=== PATIENT | female | born 1990 | race Caucasian/White ===

== ENCOUNTER → 2023-05-19 11:05 | Outpatient (REF) | payer BC, SELFPAY | LOC: RAD 11:05 | PROVIDERS: ATTENDING PHYSICIAN Obstetrics & Gynecology; FAMILY PHYSICIAN Internal Medicine | DX: O26.851 Spotting complicating pregnancy, first trimester (principal) | CPT/HCPCS: 76801; 76817 ==

== ENCOUNTER 2023-05-20 06:26 | Day surgery (SDC) | payer BC, SELFPAY ==
[2023-05-20] VITALS (7 sets, daily range): BP systolic 104–128; BP diastolic 65–91; BMI 21.2
[2023-05-20 08:25] LABS: Hematocrit 34.9 % (37.0-47.0); Hemoglobin 12.4 g/dL (12.0-16.0)
[2023-05-20] MEDS: VIBRAMYCIN 260 MG IV (09:47)
== END 2023-05-20 11:10 | disposition home or self-care (01) ==
LOC: SDS 06:26
PROVIDERS: ATTENDING PHYSICIAN Obstetrics & Gynecology
DX: O03.4 Incomplete spontaneous abortion without complication (principal)
CPT/HCPCS: 59812; 88305; 85014; 85018; 86850; 86900; 86901

== ENCOUNTER → 2023-10-11 15:11 | Outpatient (REF) | payer BC, SELFPAY | LOC: PNTC 15:11 | PROVIDERS: ATTENDING PHYSICIAN Obstetrics & Gynecology | DX: Z36.0 Encounter for antenatal screening for chromosomal anomalies (principal); Z36.82 Encounter for antenatal screening for nuchal translucency | CPT/HCPCS: 76801; 76813 ==

== ENCOUNTER 2024-04-16 08:23 | Inpatient (IN) | payer BC, SELFPAY ==
[2024-04-15 18:00] VITALS: BP 127/86; BMI 28.3
[2024-04-15] MEDS: MAALOX 30 ML PO (19:44)
[2024-04-15] MEDS: LR 1000 IV ×2 (21:15→23:04)
[2024-04-15 21:34] LABS: % Basophils 0.3 % (0-2); % Immature Granulocytes 0.6 % (0-0.5); % Lymphocytes 6.9 % (20.5-51.1); % Monocytes 4.4 % (1.7-9.3); % Neutrophils 87.8 % (42.2-75.2); Absolute Basophils 0.1 10^3/uL (0-0.2); Absolute Immature Granulocytes 0.1 10^3/uL (0-0.05); Absolute Lymphocytes 1.1 10^3/uL (1.2-3.4); Absolute Monocytes 0.7 10^3/uL (0.1-0.6); Absolute Neutrophils 14.2 10^3/uL (1.4-6.5); Hematocrit 37.2 % (37.0-47.0); Hemoglobin 13.1 g/dL (12.0-16.0); Mean Corp Hgb Conc. 35.2 g/dL (33.0-37.0); Mean Corpuscular Hgb 29.9 pg (27.0-31.0); Mean Corpuscular Volume 84.9 fL (81.0-99.0); Mean Platelet Volume 10.2 fL (7.4-10.4); Nucleated Red Blood Cells % 0 %; Platelet Count 286 10^3/uL (130-400); Red Blood Cell Count 4.38 10^6/uL (4.20-5.40); Red Cell Dist. Width 12.6 % (11.5-14.5); White Blood Cell Count 16.2 10^3/uL (4.8-10.8)
[2024-04-15] MEDS: FENTANYL/BUPIVACAINE 100 EPIDURAL (22:09)
[2024-04-15] MEDS: SUBLIMAZE 100 MCG EPIDURAL (22:09)
[2024-04-15] MEDS: PITOCIN 30 UNITS/NSS 500 ML IV (23:04)
[2024-04-16 05:47] LABS: Hematocrit 32.9 % (37.0-47.0); Hemoglobin 11.5 g/dL (12.0-16.0)
[2024-04-16] MEDS: PRENATAL PLUS 1 TABLET PO (07:43)
[2024-04-17] MEDS: MOTRIN 600 MG PO (05:05)
[2024-04-17] MEDS: PRENATAL PLUS 1 TABLET PO (08:17)
[2024-04-17 13:20] LABS: Syphilis/T. pallidum Ab Reflex Negative (Negative)
== END 2024-04-17 12:15 | disposition home or self-care (01) | DRG 807 ==
LOC: LDRP 08:23
PROVIDERS: ADMITTING PHYSICIAN Obstetrics & Gynecology; FAMILY PHYSICIAN Internal Medicine
PROC: 10E0XZZ Delivery of Products of Conception, External Approach (ICD-10-PCS; 2024-04-15)
PROC: 0HQ9XZZ Repair Perineum Skin, External Approach (ICD-10-PCS; 2024-04-15)
DX: O70.0 First degree perineal laceration during delivery (principal); Z37.0 Single live birth; Z3A.39 39 weeks gestation of pregnancy
CPT/HCPCS: 36415; 85014; 85018; 85025; 86780; 86850; 86900; 86901

== ENCOUNTER 2024-09-21 11:15 | Emergency (ER) | payer SELFPAY ==
[2024-09-21 11:20] VITALS: BP 130/91
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
== END 2024-09-21 13:02 | disposition home or self-care (01) ==
LOC: EMR 11:15
PROVIDERS: EMERGENCY PHYSICIAN Emergency Medicine; FAMILY PHYSICIAN Internal Medicine
DX: R51.9 Headache, unspecified (principal); V47.5XXA Car driver injured in collision with fixed or stationary object in traffic accident, initial encounter
CPT/HCPCS: 99283

== ENCOUNTER 2024-11-06 18:09 | Emergency (ER) | payer OTHER, BC, SELFPAY ==
[2024-11-06 18:14] VITALS: BP 110/82
[2024-11-06 18:40] LABS: Hematocrit 36.5 % (37.0-47.0); Hemoglobin 12.5 g/dL (12.0-16.0); Mean Corp Hgb Conc. 34.2 g/dL (33.0-37.0); Mean Corpuscular Volume 83.1 fL (81.0-99.0); Nucleated Red Blood Cells % 0 %; Platelet Count 237 10^3/uL (130-400); Red Cell Dist. Width 13.0 % (11.5-14.5)
[2024-11-06 18:50] LABS: HCG, Serum Qualitative Screen Negative
[2024-11-06 18:59] LABS: ALT (SGPT) 26 U/L (0-35); AST (SGOT) 22 U/L (14-36); Albumin 4.8 g/dl (3.5-5.0); Alkaline Phosphatase 65 U/L (38-126); Blood Urea Nitrogen 10 mg/dl (7-17); Calcium 9.3 mg/dl (8.4-10.2); Carbon Dioxide 23 mmol/L (22-30); Chloride 100 mmol/L (98-107); Glucose 108 mg/dl (70-99); Potassium 4.0 mmol/L (3.5-5.1); Sodium 132 mmol/L (135-145); Total Protein 7.9 g/dl (6.3-8.2); eGFR > 60.00
[2024-11-06 21:26] VITALS: BP 98/66
[2024-11-06 21:41] VITALS: BMI 21.5
[2024-11-06 22:00] VITALS: BP 98/74
--- NOTE | 2024-11-06 22:15 | ED.GENMED ---
History of Present Illness
General
Chief Complaint: Cardiac Symptoms
Source: patient
Exam Limitations: none
Time Seen by Provider: 11/06/24 21:10
History of Present Illness
History of Present Illness:
33-year-old female scratchy throat low-grade fever the last few days. Patient's children are ill. When she got to urgent care her heart was pounding and racing some. They did an EKG with T wave inversions and sent her to the hospital. Currently
she feels well and is in no distress. She denies chest pain shortness of breath abdominal pain pleuritic pain. Sore throat is minimal at this time.
Past History
Past History
ED Past Medical History: None
ED Past Surgical History: Orthopedic and Other ([place] teeth. Sinus surgery)
Social History
Tobacco: Non-smoker
Personal: Single
Living: with family
Employment: Employed
Review of Systems
Review of Systems
All Other Systems: Not applicable
Constitutional: Reports fever
Respiratory: Reports no symptoms
Cardiac: Reports no symptoms
ABD/GI: Reports no symptoms
Phy Exam
Physical Exam
Physical Exam:
GENERAL: Alert and oriented in no apparent distress
EYE: Orbits normal.
NECK: Supple, minimal bilateral submandibular adenopathy
ENT: Pharynx with mild diffuse erythema. No exudate. No abscess. No drooling or stridor
CARDIAC: Borderline tachycardic. Regular. No murmur
LUNGS: Clear breath sounds,normal
ABDOMEN: Soft, without focal tenderness or distention
NEUROLOGICAL: Alert and oriented , grossly non-focal
SKIN: Warm and dry, no rash or lesion, no discoloration, skin intact.
MUSCULOSKELETAL: No edema,no deformity.Good color
PSYCH: Normal and appropriate interaction.
Course
Orders/Labs/Results
Orders:
Orders
11/06/24 18:09
Electrocardiogram (*1) Urgent
Reason for Study: Abnormal EKG
EKG- Treatment ONCE
11/06/24 18:20
Test Result ONCE
11/06/24 18:29
Complete Blood Count/With Diff Urgent
Comprehensive Metabolic Panel Urgent
HCG, Serum Qualitative Screen Urgent
11/06/24 22:27
0.9% Sodium Chloride 1000 ml [Nss] 1,000 ml IV BOLUS
11/06/24 22:39
D-Dimer Urgent
Troponin I Urgent
11/06/24 23:16
Rapid Strep Group A Urgent
CHAD Source: Throat/Pharynx
Specimen Description:
Date Specimen was Collected: 11/06/24
Time Specimen was Collected: 22:47
Throat Culture [Throat Culture, Comprehensive] Urgent
CHAD Source: Throat/Pharynx
Specimen Description:
Date Specimen was Collected: 11/06/24
Time Specimen was Collected: 22:47
11/07/24 00:55
Electrocardiogram (*1) Stat
Reason for Study: Other
Other Reason for Exam: chest pain
EKG- Treatment ONCE
11/07/24 01:04
Troponin I Urgent
11/07/24 02:19
0.9% Sodium Chloride 1000 ml [Nss] 1,000 ml IV BOLUS
Abnormal Lab Results
11/06/24
18:29
Hct 36.5 L %
(37.0-47.0)
Absolute Monos (auto) 0.7 H 10^3/uL
(0.1-0.6)
Sodium 132 L mmol/L
(135-145)
Glucose 108 H mg/dl
(70-99)
11/06/24 18:29
11/06/24 18:29
Vital Signs
Initial and Last Documented VS:
Initial Vital Signs
Temp Pulse Resp BP Pulse Ox
99.5 F 118 16 110/82 96
11/06/24 18:14 11/06/24 18:14 11/06/24 18:14 11/06/24 18:14 11/06/24 18:14
Last Documented Vital Signs
Temp Pulse Resp BP Pulse Ox
99.7 F 102 15 98/74 96
11/07/24 02:26 11/06/24 23:35 11/06/24 23:35 11/06/24 23:00 11/06/24 22:16
MDM/Problems Addressed
Differential Diagnosis Includes:
EKG has nonspecific changes. However very low suspicion for any acute cardiac issue/myocarditis/pericarditis. She has no symptoms. She has no chest pain no shortness of breath. She has no murmur. She has no skin findings. Will check troponin
and D-dimer for completeness.
*Pulse Oximetry
SaO2: 96
Oxygen Mode of Delivery: Room air
Patient hypoxic: no
*EKG
Interpreted by ED Provider?: Yes
Interpretation: abnormal
Comparison EKG: no comparison EKG present
Heart Rate: 116
Rate: tachycardiac
Rhythm: sinus
Weidman: normal axis
Interval: normal interval
QRS Pattern: normal QRS
Ischemia: non-specific ST changes
Update Note
Update Note:
Repeat troponin is normal. Repeat EKG sinus tachycardia with nonspecific changes. Patient has no chest pain no shortness of breath is very nontoxic only complaining of a mild sore throat. She is mildly hypotensive although she is thin and petite.
We will give her a second liter of fluids. Nothing to support a bacterial infection at this time although she has a history of sinus issues.
ED Attending Note
-
Portions of this chart may have been created with voice recognition software.� Occasional wrong word or��sound alike� substitutions may have occurred due to the inherent limitations of voice recognition software.
Discharge Plan
Departure
Patient Disposition: Home (Routine Discharge)
Date of Disposition: 11/07/24
Time of Disposition: 02:53
Patient with high blood pressure during this ER visit?: No
Discharge Problem:
Pharyngitis/fever, Abnormal EKG
Instructions: Fever in adults - ED discharge instructions, Sore Throat - Adult
Prescriptions:
New
amoxicillin 500 mg capsule
500 mg PO TID 10 Days Qty: 30 0RF
No Action
1 tab PO DAILY
acetaminophen 325 mg Tablet
650 mg PO Q4HPRN PRN (Reason: mild pain) Qty: 7 0RF
sennosides-docusate sodium 8.6-50 mg Tablet
1 tab PO DAILYPRN PRN (Reason: constipation) Qty: 7 0RF
ibuprofen 600 mg Tablet
600 mg PO Q6HPRN PRN (Reason: moderate pain/cramps) Qty: 7 0RF
Referrals:
Grant Donovan MD [Family Provider, Internal Medicine] - Follow up in 2-3 days
Activity Restrictions/Additional Instructions:
Only start the antibiotics if you are not improving in 24 hours
Stay well-hydrated.
Follow-up closely with your physician
Return immediately with any chest pain shortness of breath worsening fever vomiting or if symptoms have not improved in a few days
Interventions
Interventions:
*Risk Screen - Suicide Last Done: 11/06/24 23:38
*General Assessment Last Done: 11/06/24 23:38
*Neglect/Abuse Screening Last Done: 11/06/24 23:38
*ED- Fall Risk Assessment Last Done: 11/06/24 23:22
*ED COVID-19 Vaccine History Last Done: 11/06/24 23:38
ED- Pulmonary Assessment Last Done: 11/06/24 21:41
ED- Cardiac Assessment Last Done: 11/06/24 23:38
Discharge Date and Time
Print Language: EGYPTIAN
[2024-11-06 22:59] LABS: D-Dimer < 0.27 ug/mlFEU (0.00-0.50)
[2024-11-06 23:00] VITALS: BP 98/74
[2024-11-06] MEDS: NSS 1000 IV (23:19)
[2024-11-06 23:27] LABS: Troponin I 0.023 ng/ml
[2024-11-07] VITALS (7 sets, daily range): BP systolic 84–95; BP diastolic 53–72
[2024-11-07 02:01] LABS: Troponin I < 0.012 ng/ml
[2024-11-07] MEDS: NSS 1000 IV (02:25)
== END 2024-11-07 03:08 | disposition home or self-care (01) ==
LOC: EMR 18:09
PROVIDERS: Emergency Medicine; EMERGENCY PHYSICIAN Emergency Medicine; FAMILY PHYSICIAN Internal Medicine
DX: J02.9 Acute pharyngitis, unspecified (principal); R94.31 Abnormal electrocardiogram [ECG] [EKG]; R00.0 Tachycardia, unspecified
CPT/HCPCS: 99284; 96360; 80053; 84484; 84703; 85025; 85379; 87070; 87880; 93005